=== PATIENT | male | born 1960 | race African-American/Black ===

== ENCOUNTER 2018-07-22 18:15 | Inpatient (IN) | payer MEDICAID ==
[~2018-07-22] VITALS: Ht 180.3 cm; Wt 95.3 kg
[~2018-07-22 18:15] MED LIST: DEPRESSION MEDS
[2018-07-22] MEDS ORDERED: ASPIRIN 325MG TABLET PO ONE (19:15)
[2018-07-22 19:35] LABS: BASOPHILS % 0.6 % (0.0-2.0); EOSINOPHILS % 2.1 % (0.0-5.0); HEMATOCRIT. 38.1 % (42.0-52.0); HEMOGLOBIN. 12.8 g/dL (14.0-18.0); LYMPHOCYTES % 21.4 % (20.0-50.0); MEAN CORPUSCULAR HEMOGLOBIN 31.7 pg (28.0-32.0); MEAN CORPUSCULAR VOLUME 94.6 fL (80.0-94.0); MONOCYTES % 9.6 % (2.0-8.0); NEUTROPHILS % 66.3 % (40.0-76.0); PLATELET 231 x1000/uL (130-400); RED BLOOD CELL COUNT 4.02 mill/uL (4.7-6.1); RED CELL DISTRIBUTION WIDTH 14.4 % (11.6-14.6)
[2018-07-22 19:40] LABS: CHLORIDE 103 mEq/L (98-107)
[2018-07-22] MEDS ORDERED: VISCOUS LIDOCAINE 2% 15 ML UDC PO STA (19:45)
[2018-07-22] MEDS ORDERED: METOCLOPRAMIDE HCL 10MG/2ML VIAL IV STA (19:45)
[2018-07-22] MEDS ORDERED: MAGNESIUM/ALUMINUM HYDROXIDE/SIMETHICONE 30ML UDC PO STA (19:45)
[2018-07-22] MEDS ORDERED: FAMOTIDINE 20MG/2ML VIAL IV STA (19:45)
[2018-07-22] MEDS ORDERED: IOHEXOL-300 100 ML BOTTLE ONE (21:50)
[2018-07-22 22:59] LABS: CLARITY URINE CLEAR (CLEAR); COLOR URINE YELLOW (YELLOW); KETONES URINE NEGATIVE (NEGATIVE); LEUKOCYTE ESTERASE URINE NEGATIVE (NEGATIVE); NITRITE URINE NEGATIVE (NEGATIVE); OCCULT BLOOD URINE TRACE (NEGATIVE); PROTEIN URINE NEGATIVE (NEGATIVE); UROBILINOGEN URINE 0.2 E.U./dL (0.2-1.0)
[2018-07-23] MEDS ORDERED: POTASSIUM CHLORIDE 20MEQ TABLET SR PO ONE (01:15)
[2018-07-23 03:05] VITALS: BP 155/94
[2018-07-23 04:00] VITALS: BP 155/94
[2018-07-23] MEDS ORDERED: ONDANSETRON HCL 4MG/2ML INJ IV PRN (05:45)
[2018-07-23] MEDS: MORPHINE SULFATE 4 MG/ML CPJ (NOT FOR IM USE) IV PRN ×2 (06:08→21:50)
[2018-07-23] MEDS ORDERED: SODIUM CHLORIDE 0.9% 1,000 ML IV SCH (06:30)
[2018-07-23 08:00] VITALS: BP 129/97
[2018-07-23 08:41] LABS: BASOPHILS % 0.4 % (0.0-2.0); HEMATOCRIT. 37.5 % (42.0-52.0); HEMOGLOBIN. 12.5 g/dL (14.0-18.0); LYMPHOCYTES % 31.2 % (20.0-50.0); MEAN CORPUSCULAR HEMOGLOBIN 31.5 pg (28.0-32.0); MEAN CORPUSCULAR VOLUME 94.9 fL (80.0-94.0); MEAN PLATELET VOLUME 8.2 fl (7.4-10.4); MONOCYTES % 13.8 % (2.0-8.0); NEUTROPHILS % 52.6 % (40.0-76.0); PLATELET 221 x1000/uL (130-400); RED BLOOD CELL COUNT 3.95 mill/uL (4.7-6.1); RED CELL DISTRIBUTION WIDTH 14.2 % (11.6-14.6)
[2018-07-23 09:11] LABS: CHLORIDE 106 mEq/L (98-107)
[2018-07-23 09:23] LABS: LDL CHOLESTEROL 110 mg/dL (5-100)
[2018-07-23 09:24] LABS: CREATINE KINASE MB FRACTION < 1.0 ng/mL (0.5-3.6); HDL CHOLESTEROL 48 mg/dL (40-59)
[2018-07-23 10:59] LABS: HEPATITIS B SURFACE ANTIGEN NEGATIVE
[2018-07-23 11:28] LABS: HEPATITIS A AB IGM NEGATIVE (NEGATIVE)
[2018-07-23 12:00] VITALS: BP 136/104
[2018-07-23 12:33] LABS: *AMPHETAMINES SCREEN URINE NEGATIVE (NEGATIVE); *BENZODIAZEPINES SCREEN URINE NEGATIVE (NEGATIVE); *COCAINE SCREEN URINE NEGATIVE (NEGATIVE); METHADONE URINE SCREEN NEGATIVE (NEGATIVE)
[2018-07-23 12:34] LABS: CANNABINOID URINE SCREEN PRESUMTIVE POSITIVE (NEGATIVE); OPIATES URINE SCREEN NEGATIVE (NEGATIVE); PHENCYCLIDINE URINE SCREEN NEGATIVE (NEGATIVE)
[2018-07-23 13:19] LABS: *BARBITURATES SCREEN URINE NEGATIVE (NEGATIVE)
[2018-07-23 16:00] VITALS: BP 156/92
[2018-07-23] MEDS ORDERED: DEXTROSE 50% WATER 50ML SYRINGE IV PRN (17:15)
[2018-07-23] MEDS ORDERED: DEXT 5%/0.9% NACL 1,000 ML IV SCH (17:15)
[2018-07-23] MEDS: BLOOD SUGAR DIAGNOSTIC STRIP TEST SCH ×2 (17:24→21:00)
[2018-07-23] MEDS: INSULIN LISPRO 100 UNITS/ML SUBCUT SCH ×2 (17:24→21:00)
[2018-07-23 20:00] VITALS: BP 144/96
[2018-07-24] VITALS: BP 133/76
[2018-07-25 04:15] LABS: HIV SCREEN 4G Non Reactive (Non Reactive)
== END 2018-07-24 03:00 | disposition left against medical advice (07) | DRG 282 ==
LOC: ER 18:15 → EDBEDREQTM 07-23 00:20 → EDBEDREQ 07-23 00:20 → EDBEDREQDT 07-23 00:20 → ENRESERV 07-23 01:53 → 6EST 07-23 04:18
PROVIDERS: ADMIT Internal Medicine; ATTEND Internal Medicine
DX: K85.90 Acute pancreatitis without necrosis or infection, unspecified (principal); K76.0 Fatty (change of) liver, not elsewhere classified; D53.9 Nutritional anemia, unspecified; I10 Essential (primary) hypertension; R73.03 Prediabetes; F32.9 Major depressive disorder, single episode, unspecified; K29.70 Gastritis, unspecified, without bleeding; K59.00 Constipation, unspecified; F12.90 Cannabis use, unspecified, uncomplicated; R79.1 Abnormal coagulation profile; K21.9 Gastro-esophageal reflux disease without esophagitis; Z59.0 Homelessness
CPT/HCPCS: 36415; 71045; 74177; 76705; 78582; 80061; 80305; 80320; 82553; 82962; 83605; 84484; 85379; 86141; 86705; 86709; 86803; 87340; 87389; 93005; 96374; 96375; 99285; A9558; J2270; J2765; J3490; J7030; Q9967

== ENCOUNTER 2020-06-09 16:50 | Inpatient (IN) | payer MEDICAID, OTHER ==
[~2020-06-09] VITALS: Ht 180.3 cm; Wt 91.7 kg
[2020-06-09] MEDS ORDERED: SODIUM CHLORIDE 0.9% 1,000 ML IV ONE (17:45)
[2020-06-09] MEDS ORDERED: ONDANSETRON HCL 4MG/2ML INJ IV ONE (17:45)
[2020-06-09 18:14] LABS: CHLORIDE 106 mEq/L (98-107)
[2020-06-09 18:16] LABS: PROTHROMBIN TIME 10.9 sec (9.6-11.0)
[2020-06-09 18:19] LABS: BASOPHILS % 0.5 % (0.0-2.0); HEMATOCRIT. 41.5 % (42.0-52.0); HEMOGLOBIN. 13.6 g/dL (14.0-18.0); LYMPHOCYTES % 22.7 % (20.0-50.0); MEAN CORPUSCULAR HEMOGLOBIN 31.7 pg (28.0-32.0); MEAN CORPUSCULAR VOLUME 96.3 fL (80.0-94.0); MEAN PLATELET VOLUME 8.7 fl (7.4-10.4); MONOCYTES % 7.4 % (2.0-8.0); NEUTROPHILS % 68.4 % (40.0-76.0); PLATELET 196 x1000/uL (130-400); RED BLOOD CELL COUNT 4.31 mill/uL (4.7-6.1); RED CELL DISTRIBUTION WIDTH 15.2 % (11.6-14.6)
[2020-06-09 18:20] LABS: ETHANOL BLOOD < 10 mg/dL
[2020-06-09] MEDS ORDERED: MORPHINE SULFATE 4 MG/ML CPJ (NOT FOR IM USE) IV NR (20:15)
[2020-06-09] MEDS ORDERED: ONDANSETRON HCL 4MG/2ML INJ IV NR (20:15)
[2020-06-10] VITALS (7 sets, daily range): BP systolic 123–163; BP diastolic 69–113
[2020-06-10] MEDS ORDERED: ONDANSETRON HCL 4MG/2ML INJ IV PRN (10:15)
[2020-06-10] MEDS ORDERED: TRAMADOL 50MG TABLET PO PRN (10:15)
[2020-06-10] MEDS ORDERED: ACETAMINOPHEN 325MG TABLET PO PRN (10:15)
[2020-06-10] MEDS: HYDROCODONE/ACETAMINOPHEN 5/325MG TABLET PO PRN ×2 (12:18→16:44)
[2020-06-10] MEDS: AMLODIPINE 10MG TABLET PO SCH (17:47)
[2020-06-10] MEDS ORDERED: FAMOTIDINE 20MG TABLET PO SCH (21:00)
[2020-06-11] VITALS: BP 129/62
[2020-06-11 04:00] VITALS: BP 142/66
[2020-06-11 08:00] VITALS: BP 162/91
[2020-06-11] MEDS: AMLODIPINE 10MG TABLET PO SCH (09:15)
[2020-06-11 12:00] VITALS: BP 155/94
[2020-06-11 15:18] VITALS: BP 155/94
== END 2020-06-11 16:15 | disposition home or self-care (01) | DRG 282 ==
LOC: ER 16:50 → MICUSO 21:45 → EDBEDREQ 21:49 → EDBEDREQTM 21:49 → EDBEDREQSVC 21:49 → 5WST 06-10 04:48
PROVIDERS: ADMIT Internal Medicine; ATTEND Internal Medicine
DX: K85.90 Acute pancreatitis without necrosis or infection, unspecified (principal); I10 Essential (primary) hypertension; F12.90 Cannabis use, unspecified, uncomplicated; Z59.0 Homelessness; Z82.49 Family history of ischemic heart disease and other diseases of the circulatory system; E27.8 Other specified disorders of adrenal gland; N28.1 Cyst of kidney, acquired; K57.30 Diverticulosis of large intestine without perforation or abscess without bleeding
CPT/HCPCS: 36415; 71045; 74176; 80053; 80320; 83605; 83880; 84145; 84484; 85025; 93005; 99285; J2270; J2405; J7030; G0480